=== PATIENT | female | born 1960 | race Caucasian/White ===

== ENCOUNTER 2018-12-26 00:47 | Inpatient (IN) | payer OTHER ==
[~2018-12-26] VITALS: Ht 163.8 cm; Wt 84.4 kg
[2018-12-26] VITALS (9 sets, daily range): BP systolic 123–164; BP diastolic 59–73
--- NOTE | 2018-12-26 01:03 | PHYS DOC ---
Adult General Chief Complaint Chief Complaint: RAPID HEART RATE HPI HPI Patient is a 58 year old female who presents to the ED by EMS in Afib with RVR. Pt states she started having CP, palpitations and SOA an hour ago. She was okay earlier today. She is currently SOA, but denies current palpitations or pain. She denies hx of any heart problems. She denies calf tenderness, fever, recent illness, recent trips or surgeries, or thyroid conditions. She states she passed a kidney stone a week ago. Denies alcohol, tobacco or illicit drug use. Review of Systems Review of Systems Constitutional: Denies fever or chills [] Eyes: Denies change in visual acuity, redness, or eye pain [] HENT: Denies nasal congestion or sore throat [] Respiratory: Denies cough. Complains of shortness of breath [] Cardiovascular: No additional information not addressed in HPI [] GI: Denies abdominal pain, nausea, vomiting, bloody stools or diarrhea [] Musculoskeletal: Denies back pain or joint pain [] Integument: Denies rash or skin lesions [] Neurologic: Denies headache, focal weakness or sensory changes [] Endocrine: Denies polyuria or polydipsia [] All other systems were reviewed and found to be within normal limits, except as documented in this note. Current Medications Current Medications Current Medications Medications (Trade) Dose Ordered Sig/Yumiko Start Time Stop Time Status Last Admin Dose Admin Aspirin (Children'S Aspirin) 324 mg 1X ONCE 12/26/18 01:15 12/26/18 01:16 DC Diltiazem HCl (Cardizem Iv Push) 20 mg 1X ONCE 12/26/18 01:15 12/26/18 01:16 DC Diltiazem HCl 125 mg/Dextrose 125 ml @ 5 mls/hr 1X ONCE 12/26/18 01:15 12/27/18 02:14 Sodium Chloride 500 ml @ 500 mls/hr 1X ONCE 12/26/18 01:15 12/26/18 02:14 DC Allergies Allergies Allergies Coded Allergies Type Severity Reaction Last Updated Verified Penicillins Allergy Unknown 12/26/18 Yes Physical Exam Physical Exam Constitutional: Well developed, well nourished, no acute distress, non-toxic appearance. [] HENT: Normocephalic, atraumatic, bilateral external ears normal, oropharynx moist, no oral exudates, nose normal. [] Eyes: PERRLA, EOMI, conjunctiva normal, no discharge. [] Neck: Normal range of motion, no tenderness, supple, no stridor. [] Cardiovascular:Tachycardic, no murmur []irregularly irregular no definite murmurs Lungs & Thorax: Bilateral breath sounds clear to auscultation. [] Abdomen: Bowel sounds normal, soft, no tenderness, no masses, no pulsatile masses. [] Skin: Warm, dry, no erythema, no rash. [] Back: No tenderness, no CVA tenderness. [] Extremities: No tenderness, no cyanosis, no clubbing, ROM intact, no edema. No calf tenderness or edema [] Neurologic: Alert and oriented X 3, normal motor function, normal sensory function, no focal deficits noted. [] Psychologic: Affect normal, judgement normal, mood normal. [] Current Patient Data Vital Signs Vital Signs Date Time Temp Pulse Resp B/P (MAP) Pulse Ox O2 Delivery O2 Flow Rate FiO2 12/26/18 01:09 98.1 150 10 177/84 (115) 97 Room Air 98.1 Lab Values Laboratory Tests Test 12/26/18 01:05 12/26/18 01:30 Urine Opiates Screen Neg (NEG) Urine Methadone Screen Neg (NEG) Urine Barbiturates Neg (NEG) Urine Phencyclidine Screen Neg (NEG) Urine Amphetamine/Methamphetamine Neg (NEG) Urine Benzodiazepines Screen Neg (NEG) Urine Cocaine Screen Neg (NEG) Urine Cannabinoids Screen Neg (NEG) Urine Ethyl Alcohol Neg (NEG) White Blood Count 10.2 x10^3/uL (4.0-11.0) Red Blood Count 4.98 x10^6/uL (3.50-5.40) Hemoglobin 14.3 g/dL (12.0-15.5) Hematocrit 43.8 % (36.0-47.0) Mean Corpuscular Volume 88 fL (79-100) Mean Corpuscular Hemoglobin 29 pg (25-35) Mean Corpuscular Hemoglobin Concent 33 g/dL (31-37) Red Cell Distribution Width 13.1 % (11.5-14.5) Platelet Count 175 x10^3/uL (140-400) Neutrophils (%) (Auto) 54 % (31-73) Lymphocytes (%) (Auto) 37 % (24-48) Monocytes (%) (Auto) 6 % (0-9) Eosinophils (%) (Auto) 3 % (0-3) Basophils (%) (Auto) 0 % (0-3) Neutrophils # (Auto) 5.5 x10^3uL (1.8-7.7) Lymphocytes # (Auto) 3.7 x10^3/uL (1.0-4.8) Monocytes # (Auto) 0.6 x10^3/uL (0.0-1.1) Eosinophils # (Auto) 0.3 x10^3/uL (0.0-0.7) Basophils # (Auto) 0.0 x10^3/uL (0.0-0.2) Prothrombin Time 12.0 SEC (11.7-14.0) Prothrombin Time INR 0.9 (0.8-1.1) Sodium Level 144 mmol/L (136-145) Potassium Level 3.9 mmol/L (3.5-5.1) Chloride Level 106 mmol/L (98-107) Carbon Dioxide Level 30 mmol/L (21-32) Anion Gap 8 (6-14) Blood Urea Nitrogen 23 mg/dL (7-20) H Creatinine 0.8 mg/dL (0.6-1.0) Estimated GFR (Cockcroft-Gault) 73.2 BUN/Creatinine Ratio 29 (6-20) H Glucose Level 111 mg/dL (70-99) H Calcium Level 9.5 mg/dL (8.5-10.1) Magnesium Level 1.9 mg/dL (1.8-2.4) Total Bilirubin 0.2 mg/dL (0.2-1.0) Aspartate Amino Transferase (AST) 20 U/L (15-37) Alanine Aminotransferase (ALT) 25 U/L (14-59) Alkaline Phosphatase 82 U/L (46-116) Troponin I Quantitative 0.019 ng/mL (0.000-0.055) Total Protein 7.3 g/dL (6.4-8.2) Albumin 3.6 g/dL (3.4-5.0) Albumin/Globulin Ratio 1.0 (1.0-1.7) Ethyl Alcohol Level < 10 mg/dL (0-10) Laboratory Tests 12/26/18 01:30 Laboratory Tests 12/26/18 01:30 EKG EKG [] Interpretation Time: Afib with RVR. Rate 155. No STEMI Patient spontaneously converted in the emergency room without treatment EKG repeat was normal sinus rhythm rate of 74 no acute ischemic changes noted interpreted by me time of encounter Radiology/Procedures Radiology/Procedures [] Impressions: Chest x-ray my interpretation was negative acute no obvious pneumonia was seen. Course & Med Decision Making Course & Med Decision Making Pertinent Labs and Imaging studies reviewed. (See chart for details) []58-year-old female history of hypertension presenting with A. fib with RVR rate in the 150s likely after I placed the bridge admission orders she had spontaneously converted in the emergency room. This is grade she received aspirin with the paramedics due to the significant tachycardia I think she warrants admission overnight for observation serial troponins to rule out occult ischemia cardiology consultation etc. We'll admit to the service of Dr. CATHY Tony Disclaimer Chavo Disclaimer This electronic medical record was generated, in whole or in part, using a voice recognition dictation system. Departure Departure Impression: Primary Impression: Atrial fibrillation with RVR Disposition: ADMITTED INPATIENT Admitting Physician: Leilani Alonso Condition: STABLE MARCY CHEN MD Dec 26, 2018 01:03
[2018-12-26] MEDS ORDERED: dilTIAZem INJ 125 MG in IV DEXTROSE 5% 100ML 100 ML IV ONE (01:15)
[2018-12-26] MEDS ORDERED: ASPIRIN CHEWABLE 81 MG TABLET. PO ONE (01:15)
[2018-12-26] MEDS ORDERED: dilTIAZem IV PUSH 25 MG/5 ML VIAL IVP ONE (01:15)
[2018-12-26] MEDS ORDERED: IV NORMAL SALINE 500ML BAG 500 ML IV ONE (01:15)
[2018-12-26 01:20] LABS: BARBITURATES NEG (NEG); BENZODIAZEPINES NEG (NEG); CANNABINOIDS NEG (NEG); COCAINE NEG (NEG); METHADONE NEG (NEG); OPIATES NEG (NEG); PHENCYCLIDINE NEG (NEG)
[2018-12-26 01:21] LABS: AMPHETAMINE/METHAMPHETAMINE NEG (NEG)
[2018-12-26 01:38] LABS: BASO % 0 % (0-3); EOS # 0.3 x10^3/uL (0.0-0.7); EOS % 3 % (0-3); HEMATOCRIT 43.8 % (36.0-47.0); HEMOGLOBIN 14.3 g/dL (12.0-15.5); LYMPH # 3.7 x10^3/uL (1.0-4.8); LYMPH % 37 % (24-48); MEAN CORPUSCULAR HEMOGLOBIN 29 pg (25-35); MEAN CORPUSCULAR HGB CONC 33 g/dL (31-37); MEAN CORPUSCULAR VOLUME 88 fL (79-100); MONO # 0.6 x10^3/uL (0.0-1.1); MONO % 6 % (0-9); NEUT # 5.5 x10^3uL (1.8-7.7); NEUT % 54 % (31-73); PLATELET COUNT 175 x10^3/uL (140-400); RED BLOOD COUNT 4.98 x10^6/uL (3.50-5.40); RED CELL DISTRIBUTION WIDTH 13.1 % (11.5-14.5); WHITE BLOOD COUNT 10.2 x10^3/uL (4.0-11.0)
[2018-12-26 01:50] LABS: CALCIUM 9.5 mg/dL (8.5-10.1); CREATININE 0.8 mg/dL (0.6-1.0); GFR 73.2; POTASSIUM 3.9 mmol/L (3.5-5.1)
[2018-12-26 01:55] LABS: ALBUMIN 3.6 g/dL (3.4-5.0); MAGNESIUM 1.9 mg/dL (1.8-2.4); TOTAL BILIRUBIN 0.2 mg/dL (0.2-1.0); TOTAL PROTEIN 7.3 g/dL (6.4-8.2)
--- NOTE | 2018-12-26 05:30 | NUR ---
Patient admitted to room 107 via cart from ED accompanied by ED RN. Patient alert/oriented x4--patient stated she started having rapid heart rate late last night with shortness of breath and numbness/tingling in hands and feet; patient denies palpitations, numbness/tingling or pain. Patient converted to SR in ED. Patient oriented to ICU routine, Nursing call light, TV/Bed control, importance of notifying RN for toileting, Numeric pain scale, and POC. Patient verbalized understanding. See Admission information and Admission assessment to follow.
--- NOTE | 2018-12-26 06:39 | EKG ---
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 Electronically Signed On 01-01-2019 11:27:04 CDT by Philip Goyal
--- NOTE | 2018-12-26 06:39 | EKG ---
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 Electronically Signed On 01-01-2019 11:27:33 CDT by Philip Goyal
--- NOTE | 2018-12-26 06:40 | NUR ---
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
--- NOTE | 2018-12-26 07:46 | RAD ---
Examination: PORTABLE CHEST 1V History: SOB FAST HEART RATE Comparison/Correlation: None Findings: Portable frontal view chest was obtained. Heart size and pulmonary vasculature are normal. No infiltrate or pleural effusion. No pneumothorax. No acute bony process. Deformity of the distal left clavicle which may represent old fracture is noted. Impression: No active disease. Electronically signed by: Henri Benjamin MD (12/26/2018 7:43 AM) [facility]
[2018-12-26] MEDS ORDERED: ACETAMINOPHEN 500 MG TABLET PO PRN (08:15)
[2018-12-26] MEDS ORDERED: diphenhydrAMINE HCL 25 MG CAPSULE PO PRN (08:15)
[2018-12-26] MEDS ORDERED: IBUPROFEN 400 MG TABLET. PO PRN (08:15)
[2018-12-26] MEDS ORDERED: ONDANSETRON PF 4 MG/2 ML VIAL. IV PRN (08:15)
[2018-12-26] MEDS ORDERED: ACETAMINOPHEN/CODEINE 300/30MG TABLET. PO PRN (08:15)
[2018-12-26] MEDS ORDERED: ONDANSETRON ODT 4 MG TAB.RAPDIS. PO PRN (08:15)
--- NOTE | 2018-12-26 09:21 | PDOC2 ---
CARDIAC CONSULT DATE OF CONSULT Date of Consult DATE: 12/26/18 TIME: 09:11 REASON FOR CONSULT Reason for Consult: AFIB RVR REFERRING PHYSICIAN Referring Physician: Natasha SOURCE Source: Chart review, Patient HISTORY OF PRESENT ILLNESS HISTORY OF PRESENT ILLNESS This is a pleasant 58 yo female admitted for complains of fast heart rate. She woke up around 11PM felt palpitations with chest tightness and SOA. EMS was called and was noted with AFIB RVR. She was hydrated initially but no cardizem was started as she spontaneously converted herself to SR. Denies any hx of arrhythmias, CAD or VTE. Reports of asthma otherwise no significant cardiac disease and no past CVA. She is currently homeless and lost her job 02/2018 as she does not have a mean for transport. [place] [facility] Presently she denies any symptoms. She has 2 children around town and she is not close to them r/t some family dynamic issue she did not disclose. No recent falls, injury or passing out. PAST MEDICAL HISTORY Cardiovascular: No pertinent hx Pulmonary: Asthma CENTRAL NERVOUS SYSTEM: Other (No pertinent history) GI: No pertinent hx Heme/Onc: No pertinent hx Hepatobiliary: Other (liver cyst) Psych: No pertinent hx Musculoskeletal: Osteoarthritis Rheumatologic: No pertinent hx Infectious disease: No pertinent hx ENT: No pertinent hx Renal/: Other (nephrolithiasis) Endocrine: Other (metabolic syndrome) Dermatology: No pertinent hx PAST SURGICAL HISTORY Past Surgical History: (x3) FAMILY HISTORY Family History: Stroke (father) SOCIAL HISTORY Smoke: No ALCOHOL: none Drugs: None Lives: Alone (penitentiary) CURRENT MEDICATIONS CURRENT MEDICATIONS Current Medications Medications (Trade) Dose Ordered Sig/Yumiko Route PRN Reason Start Time Stop Time Status Last Admin Dose Admin Sodium Chloride 500 ml @ 500 mls/hr 1X ONCE IV 12/26/18 01:15 12/26/18 02:14 DC 12/26/18 01:35 ALLERGIES ALLERGIES: Coded Allergies: Penicillins (Verified Allergy, Unknown, 12/26/18) Pork/Porcine Containing Products (Unverified Allergy, Unknown, 12/26/18) ROS Review of System 14 point ROS evaluated with pertinent positives noted per HPI PHYSICAL EXAM General: Alert, Oriented X3, Cooperative, No acute distress HEENT: Atraumatic, Mucous membr. moist/pink Lungs: Clear to auscultation, Normal air movement Heart: Regular rate (SR), Normal S1, Normal S2, No murmurs Abdomen: Soft, No tenderness Extremities: No cyanosis, No edema Skin: No breakdown, No significant lesion Neuro: Normal speech, Sensation intact Psych/Mental Status: Mental status NL, Mood NL MUSCULOSKELETAL: Osteoarthritic changes both hands VITALS VITALS Vital Signs Date Time Temp Pulse Resp B/P (MAP) Pulse Ox O2 Delivery O2 Flow Rate FiO2 12/26/18 07:00 60 18 141/59 (86) 100 Room Air 12/26/18 05:15 98.5 98.5 LABS Lab: Laboratory Tests Test 12/26/18 01:05 12/26/18 01:30 12/26/18 03:53 12/26/18 06:55 Urine Opiates Screen Neg (NEG) Urine Methadone Screen Neg (NEG) Urine Barbiturates Neg (NEG) Urine Phencyclidine Screen Neg (NEG) Urine Amphetamine/Methamphetamine Neg (NEG) Urine Benzodiazepines Screen Neg (NEG) Urine Cocaine Screen Neg (NEG) Urine Cannabinoids Screen Neg (NEG) Urine Ethyl Alcohol Neg (NEG) White Blood Count 10.2 x10^3/uL (4.0-11.0) Red Blood Count 4.98 x10^6/uL (3.50-5.40) Hemoglobin 14.3 g/dL (12.0-15.5) Hematocrit 43.8 % (36.0-47.0) Mean Corpuscular Volume 88 fL (79-100) Mean Corpuscular Hemoglobin 29 pg (25-35) Mean Corpuscular Hemoglobin Concent 33 g/dL (31-37) Red Cell Distribution Width 13.1 % (11.5-14.5) Platelet Count 175 x10^3/uL (140-400) Neutrophils (%) (Auto) 54 % (31-73) Lymphocytes (%) (Auto) 37 % (24-48) Monocytes (%) (Auto) 6 % (0-9) Eosinophils (%) (Auto) 3 % (0-3) Basophils (%) (Auto) 0 % (0-3) Neutrophils # (Auto) 5.5 x10^3uL (1.8-7.7) Lymphocytes # (Auto) 3.7 x10^3/uL (1.0-4.8) Monocytes # (Auto) 0.6 x10^3/uL (0.0-1.1) Eosinophils # (Auto) 0.3 x10^3/uL (0.0-0.7) Basophils # (Auto) 0.0 x10^3/uL (0.0-0.2) Prothrombin Time 12.0 SEC (11.7-14.0) Prothromb Time International Ratio 0.9 (0.8-1.1) Sodium Level 144 mmol/L (136-145) Potassium Level 3.9 mmol/L (3.5-5.1) Chloride Level 106 mmol/L (98-107) Carbon Dioxide Level 30 mmol/L (21-32) Anion Gap 8 (6-14) Blood Urea Nitrogen 23 mg/dL (7-20) Creatinine 0.8 mg/dL (0.6-1.0) Estimated GFR (Cockcroft-Gault) 73.2 BUN/Creatinine Ratio 29 (6-20) Glucose Level 111 mg/dL (70-99) Calcium Level 9.5 mg/dL (8.5-10.1) Magnesium Level 1.9 mg/dL (1.8-2.4) Total Bilirubin 0.2 mg/dL (0.2-1.0) Aspartate Amino Transf (AST/SGOT) 20 U/L (15-37) Alanine Aminotransferase (ALT/SGPT) 25 U/L (14-59) Alkaline Phosphatase 82 U/L (46-116) Troponin I Quantitative 0.019 ng/mL (0.000-0.055) 0.062 ng/mL (0.000-0.055) 0.110 ng/mL (0.000-0.055) Total Protein 7.3 g/dL (6.4-8.2) Albumin 3.6 g/dL (3.4-5.0) Albumin/Globulin Ratio 1.0 (1.0-1.7) Ethyl Alcohol Level < 10 mg/dL (0-10) Thyroid Stimulating Hormone (TSH) 4.945 uIU/mL (0.358-3.74) ASSESSMENT/PLAN ASSESSMENT/PLAN 1. AFIB RVR: spontaneously converted to SR 2. Chest pain: r/t RVR 3. Elevated troponin: peaked at 0.1 which is likely induced by RVR, demand mediated, type 2 4. Asymptomatic SB: lowest mid40s mean high 50s. likely from high dose home metoprolol. 5. Metabolic syndrome 6. Homelessness: presently lives in penitentiary 7. Subclinical hypothyroidism Recommendations 1. SS consult 2. ASA for stroke prevention, high risk for noncompliance with OAC/NOAC due to affordability and limited means. 3. Lower BB dose. Would not be able to afford outpt MCOT. Will reeval as an outpt. 4. TTE, lipids today. 5. follow up in 4 weeks, stress test as an outpt if TTE is unremarkable. SONIDO PARRA ROTARY LITHOGRAPHIC PRESS OPERATOR Dec 26, 2018 09:21
[2018-12-26] MEDS ORDERED: MOME220A IH (09:25)
[2018-12-26] MEDS ORDERED: ATOR10TA60 PO (09:25)
[2018-12-26] MEDS ORDERED: ALBU2.5V8 INH (09:25)
[2018-12-26] MEDS ORDERED: METO100T7 PO (09:25)
[2018-12-26] MEDS ORDERED: ALBUTEROL SULFATE 2.5 MG/3 ML NEBU. INH PRN (10:15)
--- NOTE | 2018-12-26 10:15 | PDOC1 ---
History and Physical Date of Admission Date of Admission DATE: 12/26/18 TIME: 10:12 Identification/Chief Complaint Chief Complaint fast heart rate Source Source: Caregiver, Chart review, Patient History of Present Illness History of Present Illness 58-year-old white female, history of asthma/bronchitis, fast heart rate at the ER. Found to be A. fib RVR then spont converted without intervention. Troponin 0.606 then 0.1. No chest pain. Now NSR, comfortable seen in ICU. Wants to go home. Cardiology has seen and ordered an echo. Her sxs were chest pain palpitations S OA 1 are prior to admission Past Medical History Cardiovascular: No pertinent hx Pulmonary: Asthma, Bronchitis CENTRAL NERVOUS SYSTEM: Other (No pertinent history) GI: No pertinent hx Heme/Onc: No pertinent hx Hepatobiliary: Other (liver cyst) Psych: No pertinent hx Musculoskeletal: Osteoarthritis Rheumatologic: No pertinent hx Infectious disease: No pertinent hx ENT: No pertinent hx Renal/: Other (nephrolithiasis) Endocrine: Other (metabolic syndrome) Dermatology: No pertinent hx Past Surgical History Past Surgical History: (x3), No pertinent history Family History Family History: Hypertension, Stroke (father) Social History Smoke: No ALCOHOL: none Drugs: None Current Problem List Problem List Problems Medical Problems: (1) Atrial fibrillation with RVR Status: Acute Current Medications Current Medications Current Medications Aspirin (Children'S Aspirin) 324 mg 1X ONCE PO ; Start 12/26/18 at 01:15; Stop 12/26/18 at 01:16; Status DC Diltiazem HCl (Cardizem Iv Push) 20 mg 1X ONCE IVP ; Start 12/26/18 at 01:15; Stop 12/26/18 at 01:16; Status DC Diltiazem HCl 125 mg/Dextrose 125 ml @ 5 mls/hr 1X ONCE IV ; Start 12/26/18 at 01:15; Stop 12/27/18 at 02:14 Sodium Chloride 500 ml @ 500 mls/hr 1X ONCE IV Last administered on 12/26/18at 01:35; Start 12/26/18 at 01:15; Stop 12/26/18 at 02:14; Status DC Acetaminophen (Tylenol) 500 mg PRN Q6HRS PRN PO HEADACHE / TEMP; Start 12/26/18 at 08:15 Acetaminophen/ Codeine Phosphate (Tylenol #3) 1 tab PRN Q6HRS PRN PO PAIN MILD; Start 12/26/18 at 08:15 Ondansetron HCl (Zofran) 4 mg PRN Q6HRS PRN IV NAUSEA/VOMITING; Start 12/26/18 at 08:15 Ondansetron HCl (Zofran Odt) 4 mg PRN Q6HRS PRN PO NAUSEA/VOMITING; Start 12/26/18 at 08:15 Ibuprofen (Motrin) 400 mg PRN Q6HRS PRN PO INFLAMMATION; Start 12/26/18 at 08:15 Diphenhydramine HCl (Benadryl) 25 mg PRN QHS PRN PO INSOMNIA; Start 12/26/18 at 08:15 Aspirin (Children'S Aspirin) 81 mg DAILYWBKFT PO ; Start 12/27/18 at 08:00 Active Scripts Active Reported Proair Hfa Inhaler (Albuterol Sulfate) 8.5 Gm Hfa.aer.ad 1 Puff INH PRN Q6HRS PRN Asmanex (Mometasone Furoate) 220 Mcg Aer.pow.ba 220 Mcg IH BID Metoprolol Tartrate 100 Mg Tablet 100 Mg PO BID Atorvastatin Calcium 10 Mg Tablet 10 Mg PO HS Allergies Allergies: Coded Allergies: Penicillins (Verified Allergy, Unknown, 12/26/18) Pork/Porcine Containing Products (Unverified Allergy, Unknown, 12/26/18) ROS Review of System as per history of present illness, the rest of ROS 14 point negative Physical Exam General: Alert, Oriented X3, Cooperative, No acute distress HEENT: Atraumatic, PERRLA, EOMI Lungs: Clear to auscultation, Normal air movement Heart: S1S2, RRR, no thrills, no rubs, no gallops, no murmurs Cardiovascular: S1, S2 Abdomen: Normal bowel sounds, Soft, No tenderness, No hepatosplenomegaly, No masses Rectal Exam: not examined PELVIC: Nml ext genitalia Extremities: No clubbing, No cyanosis, No edema, Normal pulses, No tenderness/swelling Skin: No rashes, No breakdown, No significant lesion Neuro: Normal gait, Normal speech, Strength at 5/5 X4 ext, Normal tone, Sensation intact, Cranial nerves 3-12 NL, Reflexes 2+ Psych/Mental Status: Mental status NL, Mood NL Vitals Vitals Vital Signs Date Time Temp Pulse Resp B/P (MAP) Pulse Ox O2 Delivery O2 Flow Rate FiO2 12/26/18 08:00 Room Air 12/26/18 07:00 60 18 141/59 (86) 100 12/26/18 05:15 98.5 98.5 Labs Labs Laboratory Tests Test 12/26/18 01:05 12/26/18 01:30 12/26/18 03:53 12/26/18 06:55 Urine Opiates Screen Neg (NEG) Urine Methadone Screen Neg (NEG) Urine Barbiturates Neg (NEG) Urine Phencyclidine Screen Neg (NEG) Urine Amphetamine/Methamphetamine Neg (NEG) Urine Benzodiazepines Screen Neg (NEG) Urine Cocaine Screen Neg (NEG) Urine Cannabinoids Screen Neg (NEG) Urine Ethyl Alcohol Neg (NEG) White Blood Count 10.2 x10^3/uL (4.0-11.0) Red Blood Count 4.98 x10^6/uL (3.50-5.40) Hemoglobin 14.3 g/dL (12.0-15.5) Hematocrit 43.8 % (36.0-47.0) Mean Corpuscular Volume 88 fL (79-100) Mean Corpuscular Hemoglobin 29 pg (25-35) Mean Corpuscular Hemoglobin Concent 33 g/dL (31-37) Red Cell Distribution Width 13.1 % (11.5-14.5) Platelet Count 175 x10^3/uL (140-400) Neutrophils (%) (Auto) 54 % (31-73) Lymphocytes (%) (Auto) 37 % (24-48) Monocytes (%) (Auto) 6 % (0-9) Eosinophils (%) (Auto) 3 % (0-3) Basophils (%) (Auto) 0 % (0-3) Neutrophils # (Auto) 5.5 x10^3uL (1.8-7.7) Lymphocytes # (Auto) 3.7 x10^3/uL (1.0-4.8) Monocytes # (Auto) 0.6 x10^3/uL (0.0-1.1) Eosinophils # (Auto) 0.3 x10^3/uL (0.0-0.7) Basophils # (Auto) 0.0 x10^3/uL (0.0-0.2) Prothrombin Time 12.0 SEC (11.7-14.0) Prothromb Time International Ratio 0.9 (0.8-1.1) Sodium Level 144 mmol/L (136-145) Potassium Level 3.9 mmol/L (3.5-5.1) Chloride Level 106 mmol/L (98-107) Carbon Dioxide Level 30 mmol/L (21-32) Anion Gap 8 (6-14) Blood Urea Nitrogen 23 mg/dL (7-20) Creatinine 0.8 mg/dL (0.6-1.0) Estimated GFR (Cockcroft-Gault) 73.2 BUN/Creatinine Ratio 29 (6-20) Glucose Level 111 mg/dL (70-99) Calcium Level 9.5 mg/dL (8.5-10.1) Magnesium Level 1.9 mg/dL (1.8-2.4) Total Bilirubin 0.2 mg/dL (0.2-1.0) Aspartate Amino Transf (AST/SGOT) 20 U/L (15-37) Alanine Aminotransferase (ALT/SGPT) 25 U/L (14-59) Alkaline Phosphatase 82 U/L (46-116) Troponin I Quantitative 0.019 ng/mL (0.000-0.055) 0.062 ng/mL (0.000-0.055) 0.110 ng/mL (0.000-0.055) Total Protein 7.3 g/dL (6.4-8.2) Albumin 3.6 g/dL (3.4-5.0) Albumin/Globulin Ratio 1.0 (1.0-1.7) Ethyl Alcohol Level < 10 mg/dL (0-10) Thyroid Stimulating Hormone (TSH) 4.945 uIU/mL (0.358-3.74) Laboratory Tests Test 12/26/18 01:05 12/26/18 01:30 12/26/18 03:53 12/26/18 06:55 Urine Opiates Screen Neg (NEG) Urine Methadone Screen Neg (NEG) Urine Barbiturates Neg (NEG) Urine Phencyclidine Screen Neg (NEG) Urine Amphetamine/Methamphetamine Neg (NEG) Urine Benzodiazepines Screen Neg (NEG) Urine Cocaine Screen Neg (NEG) Urine Cannabinoids Screen Neg (NEG) Urine Ethyl Alcohol Neg (NEG) White Blood Count 10.2 x10^3/uL (4.0-11.0) Red Blood Count 4.98 x10^6/uL (3.50-5.40) Hemoglobin 14.3 g/dL (12.0-15.5) Hematocrit 43.8 % (36.0-47.0) Mean Corpuscular Volume 88 fL (79-100) Mean Corpuscular Hemoglobin 29 pg (25-35) Mean Corpuscular Hemoglobin Concent 33 g/dL (31-37) Red Cell Distribution Width 13.1 % (11.5-14.5) Platelet Count 175 x10^3/uL (140-400) Neutrophils (%) (Auto) 54 % (31-73) Lymphocytes (%) (Auto) 37 % (24-48) Monocytes (%) (Auto) 6 % (0-9) Eosinophils (%) (Auto) 3 % (0-3) Basophils (%) (Auto) 0 % (0-3) Neutrophils # (Auto) 5.5 x10^3uL (1.8-7.7) Lymphocytes # (Auto) 3.7 x10^3/uL (1.0-4.8) Monocytes # (Auto) 0.6 x10^3/uL (0.0-1.1) Eosinophils # (Auto) 0.3 x10^3/uL (0.0-0.7) Basophils # (Auto) 0.0 x10^3/uL (0.0-0.2) Prothrombin Time 12.0 SEC (11.7-14.0) Prothromb Time International Ratio 0.9 (0.8-1.1) Sodium Level 144 mmol/L (136-145) Potassium Level 3.9 mmol/L (3.5-5.1) Chloride Level 106 mmol/L (98-107) Carbon Dioxide Level 30 mmol/L (21-32) Anion Gap 8 (6-14) Blood Urea Nitrogen 23 mg/dL (7-20) Creatinine 0.8 mg/dL (0.6-1.0) Estimated GFR (Cockcroft-Gault) 73.2 BUN/Creatinine Ratio 29 (6-20) Glucose Level 111 mg/dL (70-99) Calcium Level 9.5 mg/dL (8.5-10.1) Magnesium Level 1.9 mg/dL (1.8-2.4) Total Bilirubin 0.2 mg/dL (0.2-1.0) Aspartate Amino Transf (AST/SGOT) 20 U/L (15-37) Alanine Aminotransferase (ALT/SGPT) 25 U/L (14-59) Alkaline Phosphatase 82 U/L (46-116) Troponin I Quantitative 0.019 ng/mL (0.000-0.055) 0.062 ng/mL (0.000-0.055) 0.110 ng/mL (0.000-0.055) Total Protein 7.3 g/dL (6.4-8.2) Albumin 3.6 g/dL (3.4-5.0) Albumin/Globulin Ratio 1.0 (1.0-1.7) Ethyl Alcohol Level < 10 mg/dL (0-10) Thyroid Stimulating Hormone (TSH) 4.945 uIU/mL (0.358-3.74) VTE Prophylaxis Ordered VTE Prophylaxis Devices: Yes VTE Pharmacological Prophylaxi: Yes Assessment/Plan Assessment/Plan New A. fib RVR spont converted Asthma, chronic stable OA, chronic stable Dyslipidemia on statin PLAN: Echo IF normal and remains NSR possible home later OBS LEE ANN MORGAN MD Dec 26, 2018 10:15
[2018-12-26 10:49] LABS: CHOLESTEROL/HDL RATIO 3.7
[2018-12-26] MEDS ORDERED: METOPROLOL TART IMMED RELEASE 50 MG TABLET. PO SCH (11:00)
--- NOTE | 2018-12-26 12:13 | CARD ---
MR#: [id number] Date of Study: 12/26/2018 Ordering Physician: SONIDO PARRA, Referring Physician: LEE ANN MORGAN Tech: Luisa Gill [facility] APPROVED REPORT EXAM: Two-dimensional and M-mode echocardiogram with Doppler and color Doppler. Other Information Quality : Good INDICATION Atrial Fibrillation 2D DIMENSIONS RVDd2.4 (2.9-3.5cm)Left Atrium(2D)4.0 (1.6-4.0cm) IVSd1.0 (0.7-1.1cm)Aortic Root(2D)2.9 (2.0-3.7cm) LVDd5.3 (3.9-5.9cm)LVOT Diameter2.1 (1.8-2.4cm) PWd1.0 (0.7-1.1cm)LVDs3.9 (2.5-4.0cm) FS (%) 26.4 %SV70.3 ml LVEF(%)51.3 (>50%) Aortic Valve AoV Peak Daron.135.6cm/sAoV VTI26.9cm AO Peak GR.7.4mmHgLVOT VTI 15.67cm AO Mean GR.4mmHgAVA (VTI)1.90cm2 Mitral Valve MV E Eyrhthhu43.3cm/sMV DECEL MCEG921zh MV A Zdqbqeur40.0cm/sE/A Ratio0.9 TDI Lateral E' P. V3.82cm/sMedial E' P. V2.27cm/s E/Lateral E'22.6E/Medial E'38.0 Tricuspid Valve TR P. Xlwbqnno914le/sRAP JFXNPEFS9kuRl TR Peak Gr.53dhKrHKSE87znJp Pulmonary Vein S1 Tigowucm87.2cm/sS2 Uyjwgowc24.13cm/s D2 Cytriabd64.1cm/s LEFT VENTRICLE The left ventricle is normal size. There is normal left ventricular wall thickness. Left ventricle sy stolic function is low normal. The Ejection Fraction is 50%. There is normal LV segmental wall motion . Transmitral Doppler flow pattern is Grade I-abnormal relaxation pattern. RIGHT VENTRICLE The right ventricle is normal size. The right ventricular systolic function is normal. ATRIA The left atrium is mildly dilated. The right atrium size is normal. The interatrial septum is intact with no evidence for an atrial septal defect or patent foramen ovale as noted on 2-D or Doppler imagi ng. AORTIC VALVE The aortic valve is normal in structure and function. Doppler and Color Flow revealed no significant aortic regurgitation. There is no significant aortic valvular stenosis. There is no aortic valvular v egetation. MITRAL VALVE The mitral valve is normal in structure and function. There is no evidence of mitral valve prolapse. There is no mitral valve stenosis. Doppler and Color Flow revealed no mitral valve regurgitation note d. TRICUSPID VALVE The tricuspid valve is normal in structure and function. Doppler and Color Flow revealed no tricuspid valve regurgitation noted. There is no tricuspid valve prolapse or vegetation. There is no tricuspid valve stenosis. PULMONIC VALVE Not well visualized. GREAT VESSELS The aortic root is normal in size. The ascending aorta is normal in size. The IVC is normal in size a nd collapses <50% with inspiration. PERICARDIAL EFFUSION There is no evidence of significant pericardial effusion. Critical Notification Critical Value: No <Conclusion> Left ventricle systolic function is low normal. The Ejection Fraction is 50%. There is normal LV segmental wall motion. Signed by : Yuri Matos, Electronically Approved : 12/26/2018 12:12:38
--- NOTE | 2018-12-26 13:21 | NUR ---
SS following up with discharge planning. Pt is from [facility] at [address] [place] [address] in [place] [id number], . SS contacted the half-way and was notified that pt would need to be at there door prior to 1500 or would not be able to come until 2100. The half-way reported that they are closed from 1500 to 2100 and pt would not be allowed in during those times. Pt's RN notified.
[2018-12-26] MEDS ORDERED: METO25TA4 PO (18:01)
[2018-12-26] MEDS ORDERED: ASPI-630 PO (18:01)
--- NOTE | 2018-12-26 18:34 | NUR ---
RN went over discharge medications and paperwork with patient. Pt has card for follow up appointment with Cardiology in packet. Pt has no further questions. Pt scheduled to leave at 2100 back to [facility] in . Cab pass ordered.
[2018-12-26] MEDS ORDERED: BUDESONIDE 0.5 MG/2 ML NEBU. NEB SCH (20:00)
[2018-12-26] MEDS ORDERED: METOPROLOL TART IMMED RELEASE 25 MG TABLET. PO SCH (21:00)
[2018-12-26] MEDS ORDERED: ATORVASTATIN CALCIUM 10 MG TABLET. PO SCH (21:00)
--- NOTE | 2018-12-26 21:30 | NUR ---
Pt discharged at this time via cab to [facility]. 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
[2018-12-27] MEDS ORDERED: ASPIRIN CHEWABLE 81 MG TABLET. PO SCH (08:00)
== END 2018-12-26 21:30 | disposition home or self-care (01) | DRG 309 ==
LOC: ER 00:47 → 1 WEST ICU 04:24
PROVIDERS: ADMIT Internal Medicine; ATTEND Internal Medicine
DX: I48.91 Unspecified atrial fibrillation (principal); I24.8 Other forms of acute ischemic heart disease; J45.909 Unspecified asthma, uncomplicated; M19.90 Unspecified osteoarthritis, unspecified site; E78.5 Hyperlipidemia, unspecified; E03.9 Hypothyroidism, unspecified; E88.81 Metabolic syndrome and other insulin resistance; Z87.442 Personal history of urinary calculi; Z88.0 Allergy status to penicillin; Z82.49 Family history of ischemic heart disease and other diseases of the circulatory system; Z82.3 Family history of stroke; Z59.0 Homelessness; Z56.0 Unemployment, unspecified
CPT/HCPCS: 36415; 71045; 80053; 80061; 80307; 83735; 84443; 84484; 85025; 85610; 87641; 93005; 93306; 96360; G0480; J7040; 99285-25

== ENCOUNTER → 2019-01-11 | Day surgery (SDC) | payer OTHER ==
[~2019-01-11] MED LIST: ALBU2.5V8 INH; ASPI-630 PO; ATOR10TA60 PO; IV RINGERS,LACTATED 1000ML 1,000 ML IV SCH; METO100T7 PO; METO25TA4 PO; MOME220A IH; PROPOFOL 40 ML IV ONE
[2019-01-11 14:33] VITALS: BP 138/65
--- NOTE | 2019-01-11 22:33 | CONS ---
DATE OF CONSULTATION: 01/11/2019 REFERRING PHYSICIAN: Dr. Espana. REASON FOR CONSULTATION: Colorectal screening. HISTORY OF PRESENT ILLNESS: A 58-year-old female with past medical history significant for hypertension, hyperlipidemia, osteoarthrosis with degenerative joint disease, status post C-sections x 3, seen for screening colon exam. Bowel habits are regular without diarrhea or constipation. There has been no melena and/or hematochezia. Weight and appetite are stable. No family history of colon polyps or colon cancer is noted. She is otherwise without additional complaints. PAST MEDICAL HISTORY: Hyperlipidemia, hypertension, history of osteoarthrosis, status post C-sections x 3. ALLERGIES: PENICILLIN. MEDICATIONS: Include albuterol, aspirin, atorvastatin, metoprolol and Asmanex. SOCIAL HISTORY: She does not smoke. She is a social drinker. She is on disability. FAMILY HISTORY: Noncontributory. REVIEW OF SYSTEMS: Per records. PHYSICAL EXAMINATION: GENERAL: Reveals a well-nourished, well-developed female who is alert, cooperative, in no acute distress. VITAL SIGNS: Temperature 97.9, pulse 59, respirations 16. HEENT: Normocephalic and atraumatic head. Pupils and extraocular movements are not tested. Sclerae are icteric. NECK: Supple. LUNGS: Clear. CARDIOVASCULAR: Reveals an S1, S2 without S3, S4 or appreciable murmur. ABDOMEN: Soft abdomen, normal bowel sounds, without appreciable hepatosplenomegaly. EXTREMITIES: Reveals no cyanosis, clubbing, edema. SKIN: incision is noted. IMPRESSION: Colorectal screening. Risks and benefits of procedure have been discussed and the patient is willing to proceed at this time as warranted. I would like to thank Dr. Espana for allowing us to consult and participate in this patient's care. BRITTNEY GONSALVES MD DR: MYRIAM/cheng JOB#: [id number] / [id number] ALMA Aldrich ,
== END | disposition home or self-care (01) ==
LOC: ENDOS 11:47
PROVIDERS: ATTEND Internal Medicine Gastroenterology
DX: Z12.11 Encounter for screening for malignant neoplasm of colon (principal); K57.30 Diverticulosis of large intestine without perforation or abscess without bleeding; K64.0 First degree hemorrhoids; I10 Essential (primary) hypertension; E78.5 Hyperlipidemia, unspecified; M19.90 Unspecified osteoarthritis, unspecified site; Z98.890 Other specified postprocedural states; Z88.0 Allergy status to penicillin; Z79.82 Long term (current) use of aspirin; Z79.899 Other long term (current) drug therapy; Z72.89 Other problems related to lifestyle
CPT/HCPCS: 45378; J2704